=== PATIENT | male | born 1970 | race Caucasian/White ===

== ENCOUNTER 2018-05-09 17:14 | Emergency (ER) | payer BC, OTHER ==
[2018-05-09 18:28] VITALS: BP 128/74
[2018-05-09] MEDS ORDERED: Cephalexin CAP* 500 MG PO ONE (19:03)
--- NOTE | 2018-05-09 19:03 | UC ---
Laceration HPI - HPI Summary HPI Summary: The patient is a 47-year-old male that sustained a left ring finger laceration while trying to open a pail. Laceration occurred with a new knife. He is right handed. His tetanus shot is up-to-date. - History Of Current Complaint Chief Complaint: UCLaceration Stated Complaint: LEFT RING FINGER LACERATION Time Seen by Provider: 05/09/18 18:47 Hx Obtained From: Patient Laceration Location: Finger Mechanism Of Injury: Sharp Trauma Onset/Duration: Sudden Onset Severity: Mild Pain Intensity: 2 Pain Scale Used: 0-10 Numeric Aggravating Factors: Nothing Hands: 1 - lac Related History: Dominant Hand Right - Allergies/Home Medications Allergies/Adverse Reactions: Allergies Allergy/AdvReac Type Severity Reaction Status Date / Time No Known Allergies Allergy Verified 05/09/18 18:25 PMH/Surg Hx/FS Hx/Imm Hx Previously Healthy: Yes - Surgical History Surgical History: Yes Surgery Procedure, Year, and Place: gallbladder removal. left knee scope - Family History Known Family History: Positive: Hypertension Negative: Blood Disorder - Social History Alcohol Use: Occasionally Substance Use Type: None Substance Use Comment - Amount & Last Used: a pot or more daily Smoking Status (MU): Former Smoker Amount Used/How Often: hx of social smoking Review of Systems All Other Systems Reviewed And Are Negative: Yes Constitutional: Positive: Negative Skin: Positive: Negative Eyes: Positive: Negative ENT: Positive: Negative Respiratory: Positive: Negative Cardiovascular: Positive: Negative Gastrointestinal: Positive: Negative Genitourinary: Positive: Negative Motor: Positive: Negative Neurovascular: Positive: Negative Musculoskeletal: Positive: Negative Neurological: Positive: Negative Psychological: Positive: Negative Physical Exam Triage Information Reviewed: Yes Appearance: Well-Appearing, No Pain Distress, Well-Nourished Vital Signs: Initial Vital Signs Temp 97.4 F 05/09/18 18:23 Pulse 81 05/09/18 18:23 Resp 16 05/09/18 18:23 BP 128/74 05/09/18 18:23 Pulse Ox 98 05/09/18 18:23 Vital Signs Reviewed: Yes Eyes: Positive: Conjunctiva Clear ENT: Positive: Hearing grossly normal. Negative: Nasal congestion, Nasal drainage, Trismus, Muffled voice, Hoarse voice Neck: Positive: Supple, Nontender Respiratory: Positive: Lungs clear, Normal breath sounds, No respiratory distress Cardiovascular: Positive: RRR, No Murmur Musculoskeletal: Positive: ROM Intact, No Edema Neurological: Positive: Alert Psychological Exam: Normal Skin Exam: Other - lac lrf Laceration Repair - Laceration Repair 1 Description: Linear Laceration Size After Repair: Length (cm) - 2.3, Width (mm) - 1, Depth (mm) - 1 Cleansing Completed Via Routine Prep: Yes Irrigation With Pressure Irrigation Device: Yes Closure Material: Skin Adhesive Closure Method: Single Layer Suture Of: Skin Laceration Course/Dx - Diagnosis Provider Diagnosis: Laceration of left ring finger Discharge - Sign-Out/Discharge Documenting (check all that apply): Patient Departure All imaging exams completed and their final reports reviewed: No Studies - Discharge Plan Condition: Stable Disposition: HOME Patient Education Materials: Skin Adhesive Care (ED) Referrals: Lan Davies MD [Primary Care Provider] - If Needed - Billing Disposition and Condition Condition: STABLE Disposition: Home
== END 2018-05-09 19:12 | disposition home or self-care (01) ==
LOC: UCCORT 17:14
DX: W26.0XXA Contact with knife, initial encounter (principal); Y93.89 Activity, other specified; Y92.9 Unspecified place or not applicable; S61.215A Laceration without foreign body of left ring finger without damage to nail, initial encounter; Z87.891 Personal history of nicotine dependence
CPT/HCPCS: 12001; 99212; A9270-GY; G0463